=== PATIENT | female | born 1955 | race Caucasian/White ===

== ENCOUNTER 2019-07-05 16:45 | Inpatient (IN) ==
[2019-07-05] MEDS ORDERED: 0.9 % Sodium Chloride 1,000 ML IVC ONE (17:44)
[2019-07-05 18:16] LABS: INR 1.1; Prothrombin Time 12.5 Seconds (9.4-12.1)
[2019-07-05 18:17] LABS: Basophils % 0.3 %; Eosinophils # 0.1 K/mcL (0.0-0.6); Eosinophils % 1.1 %; Hematocrit 36.2 % (35.3-44.9); Hemoglobin 11.6 g/dL (11.5-15.4); Immature Granulocytes % 0.3 % (0-4); Lymphocytes # 1.8 K/mcL (0.6-4.6); Lymphocytes % 24.4 %; Mean Corpuscular Hemoglobin 29.8 pg (28.0-33.3); Mean Corpuscular Volume 93.1 fL (83.0-100.0); Mean Platelet Volume 11.3 fL (9.4-12.4); Monocytes # 0.7 K/mcL (0.0-1.3); Monocytes % 9.8 %; Neutrophils # 4.6 K/mcL (1.6-8.9); Platelet Count 235 K/mcL (140-400); Red Blood Count 3.89 M/mcL (3.82-4.97); Red Cell Distribution Width 13.9 % (11.5-14.5); Segmented Neutrophils % 64.1 %; White Blood Count 7.2 K/mcL (4.3-11.1)
[2019-07-05 18:19] LABS: Activated Partial Thrombo Time 33.9 Seconds (26.0-36.0)
[2019-07-05] MEDS ORDERED: Acetaminophen 325 MG TABLET PO ONE (18:24)
[2019-07-05 18:42] LABS: Alanine Aminotransferase 70 Units/L (7-52); Albumin/Globulin Ratio 1.3 (1.1-2.2); Alkaline Phosphatase 123 Units/L (34-104); Aspartate Amino Transferase 37 Units/L (13-39); BUN/Creatinine Ratio 13 (6-26); Bilirubin,Direct 0.1 mg/dL (0.0-0.2); Bilirubin,Indirect 0.2 mg/dL (0.0-1.0); Bilirubin,Total 0.3 mg/dL (0.3-1.0); Blood Urea Nitrogen 12 mg/dL (8-23); Calcium 9.7 mg/dL (8.6-10.3); Carbon Dioxide 26 mEq/L (23-29); Chloride 102 mEq/L (98-107); Globulin 3.2 g/dL (2.4-3.5); Glucose 100 mg/dL (70-105); Magnesium 2.2 mg/dL (1.6-2.6); Osmolality,Calculated 278 (280-300); Phosphorous 3.1 mg/dL (2.7-4.5); Potassium 4.1 mEq/L (3.5-5.1); Sodium 134 mEq/L (136-145); Total Protein 7.2 g/dL (6.4-8.9); Troponin I < 0.03 ng/mL (< 0.04); eGFR For African Americans > 60 (> 60); eGFR For Non-African Americans > 60 (> 60)
[2019-07-05 19:16] LABS: Bilirubin,Urine Negative (Negative); Blood,Urine Negative (Negative); Clarity,Urine Clear (Clear); Color,Urine Yellow (Yellow); Glucose,Urine (UA) Normal (Normal); Ketones,Urine Negative (Negative); Leukocyte Esterase,Urine Negative (Negative); Nitrite,Urine Negative (Negative); PH,Urine 6.5 pH Units (5.0-8.0); Protein,Urine Negative (Neg-Trace); Specific Gravity,Urine 1.012 (1.010-1.025); Urobilinogen,Urine Normal (Normal)
[2019-07-05] MEDS ORDERED: *HR* OxyCODONE Immed Rel 5 MG TABLET PO STA (19:30)
[2019-07-05] MEDS ORDERED: Naloxone 0.4 MG/ML INJ IVP PRN ×2 (21:54→22:08)
[2019-07-05] MEDS ORDERED: Ondansetron 4 MG/2 ML VIAL IVP PRN (21:54)
[2019-07-05] MEDS ORDERED: Acetaminophen 325 MG TABLET PO PRN (21:56)
[2019-07-05] MEDS: Morphine Sulfate 2 MG/ML SYRINGE IVP PRN (23:00)
[2019-07-05] MEDS: 0.9 % Sodium Chloride 1,000 ML IVC SCH (23:49)
[2019-07-05] MEDS: *HR* Heparin 5,000 UNIT/ML VIAL SQ SCH (23:56)
[2019-07-06] MEDS: Morphine Sulfate 2 MG/ML SYRINGE IVP PRN ×3 (03:06→19:11)
[2019-07-06 04:43] LABS: Basophils % 0.3 %; Eosinophils # 0.1 K/mcL (0.0-0.6); Eosinophils % 0.8 %; Hematocrit 33.6 % (35.3-44.9); Hemoglobin 10.9 g/dL (11.5-15.4); Immature Granulocytes % 0.5 % (0-4); Lymphocytes # 1.1 K/mcL (0.6-4.6); Mean Corpuscular HGB Conc 32.4 g/dL (31.6-35.5); Mean Corpuscular Hemoglobin 30.1 pg (28.0-33.3); Mean Corpuscular Volume 92.8 fL (83.0-100.0); Mean Platelet Volume 10.8 fL (9.4-12.4); Monocytes # 0.8 K/mcL (0.0-1.3); Monocytes % 11.9 %; Neutrophils # 4.5 K/mcL (1.6-8.9); Platelet Count 217 K/mcL (140-400); Red Blood Count 3.62 M/mcL (3.82-4.97); Segmented Neutrophils % 69.5 %; White Blood Count 6.5 K/mcL (4.3-11.1)
[2019-07-06 05:07] LABS: BUN/Creatinine Ratio 16 (6-26); Blood Urea Nitrogen 11 mg/dL (8-23); Calcium 9.2 mg/dL (8.6-10.3); Carbon Dioxide 23 mEq/L (23-29); Chloride 104 mEq/L (98-107); Glucose 108 mg/dL (70-105); Magnesium 1.9 mg/dL (1.6-2.6); Osmolality,Calculated 282 (280-300); Potassium 3.7 mEq/L (3.5-5.1); Sodium 136 mEq/L (136-145); eGFR For African Americans > 60 (> 60); eGFR For Non-African Americans > 60 (> 60)
[2019-07-06] MEDS ORDERED: Vancomycin 500 MG in 0.9 % Sodium Chloride Mini Bag 100 ML IVPB ONE (05:20)
[2019-07-06] MEDS: *HR* Heparin 5,000 UNIT/ML VIAL SQ SCH ×3 (05:44→20:47)
[2019-07-06] MEDS ORDERED: Aminoglycoside Consult 1 EACH MC ONE (08:47)
[2019-07-06] MEDS: Ascorbic Acid 500 MG TABLET PO SCH ×2 (08:52→20:47)
[2019-07-06] MEDS: Aspirin 81 MG TAB.CHEW PO SCH (08:52)
[2019-07-06] MEDS: carvediloL 6.25 MG TABLET PO SCH ×2 (08:52→16:33)
[2019-07-06] MEDS: FLUoxetine 20 MG CAPSULE PO SCH (08:52)
[2019-07-06] MEDS ORDERED: Gadolinium Contrast Agent (WT Based) IV PRN ×2 (09:21→09:54)
[2019-07-06] MEDS: 0.9 % Sodium Chloride 1,000 ML IVC SCH (11:18)
[2019-07-06 12:32] LABS: C-Reactive Protein 153 mg/L (Less than 10)
[2019-07-06] MEDS: Melatonin 3 MG TABLET PO SCH (20:46)
[2019-07-07] MEDS: Morphine Sulfate 2 MG/ML SYRINGE IVP PRN ×2 (03:15→11:04)
[2019-07-07 05:35] LABS: Basophils % 0.5 %; Eosinophils % 0.5 %; Hemoglobin 11.6 g/dL (11.5-15.4); Immature Granulocytes % 0.3 % (0-4); Lymphocytes # 1.6 K/mcL (0.6-4.6); Lymphocytes % 21.6 %; Mean Corpuscular HGB Conc 32.2 g/dL (31.6-35.5); Mean Corpuscular Hemoglobin 30.6 pg (28.0-33.3); Mean Platelet Volume 10.7 fL (9.4-12.4); Monocytes # 0.9 K/mcL (0.0-1.3); Neutrophils # 4.9 K/mcL (1.6-8.9); Platelet Count 243 K/mcL (140-400); Red Blood Count 3.79 M/mcL (3.82-4.97); Red Cell Distribution Width 14.2 % (11.5-14.5); Segmented Neutrophils % 65.1 %; White Blood Count 7.6 K/mcL (4.3-11.1)
[2019-07-07 05:51] LABS: BUN/Creatinine Ratio 17 (6-26); Blood Urea Nitrogen 11 mg/dL (8-23); Calcium 9.4 mg/dL (8.6-10.3); Carbon Dioxide 24 mEq/L (23-29); Chloride 103 mEq/L (98-107); Glucose 111 mg/dL (70-105); Osmolality,Calculated 282 (280-300); Potassium 3.9 mEq/L (3.5-5.1); Sodium 136 mEq/L (136-145); eGFR For African Americans > 60 (> 60); eGFR For Non-African Americans > 60 (> 60)
[2019-07-07] MEDS: *HR* Heparin 5,000 UNIT/ML VIAL SQ SCH ×3 (06:04→20:43)
[2019-07-07] MEDS: Aspirin 81 MG TAB.CHEW PO SCH (07:50)
[2019-07-07] MEDS: carvediloL 6.25 MG TABLET PO SCH ×2 (07:50→16:10)
[2019-07-07] MEDS: FLUoxetine 20 MG CAPSULE PO SCH (07:51)
[2019-07-07] MEDS: Ascorbic Acid 500 MG TABLET PO SCH ×2 (07:51→20:44)
[2019-07-07] MEDS: cefTRIAXone 2,000 MG in Water for inj. (sterile) 20 ML IVP SCH (11:04)
[2019-07-07] MEDS ORDERED: Acetaminophen 325 MG TABLET PO PRN (14:43)
[2019-07-07] MEDS ORDERED: Morphine Sulfate 2 MG/ML SYRINGE IVP PRN (14:43)
[2019-07-07] MEDS ORDERED: *HR* FentaNYL (PF) 100 MCG/2 ML VIAL IVP PRN (20:07)
[2019-07-07] MEDS: Melatonin 3 MG TABLET PO SCH (20:43)
[2019-07-08] MEDS: Ketorolac 30 MG/ML VIAL IVP PRN ×2 (04:18→13:37)
[2019-07-08] MEDS: *HR* HYDROmorphone (PF) 1 MG/ML SYRINGE IVP PRN ×2 (04:18→08:02)
[2019-07-08] MEDS: *HR* Heparin 5,000 UNIT/ML VIAL SQ SCH ×3 (05:29→20:31)
[2019-07-08] MEDS: carvediloL 6.25 MG TABLET PO SCH ×2 (07:55→16:18)
[2019-07-08] MEDS: Ascorbic Acid 500 MG TABLET PO SCH ×2 (07:55→20:30)
[2019-07-08] MEDS: FLUoxetine 20 MG CAPSULE PO SCH (07:55)
[2019-07-08] MEDS: Aspirin 81 MG TAB.CHEW PO SCH (07:55)
[2019-07-08] MEDS: cefTRIAXone 2,000 MG in Water for inj. (sterile) 20 ML IVP SCH (12:05)
[2019-07-08 14:13] LABS: Appearance,Synovial Fluid Clear (Clear-Hazy); Color,Synovial Fluid Colorless (Straw)
[2019-07-08] MEDS: Melatonin 3 MG TABLET PO SCH (20:30)
[2019-07-08] MEDS: *HR* HYDROcodone/Acet 5/325 mg TABLET PO PRN (23:04)
[2019-07-09 03:08] LABS: Hematocrit 33.1 % (35.3-44.9); Hemoglobin 10.5 g/dL (11.5-15.4); Mean Corpuscular HGB Conc 31.7 g/dL (31.6-35.5); Mean Corpuscular Hemoglobin 30.4 pg (28.0-33.3); Mean Corpuscular Volume 95.9 fL (83.0-100.0); Mean Platelet Volume 10.8 fL (9.4-12.4); Platelet Count 310 K/mcL (140-400); Red Blood Count 3.45 M/mcL (3.82-4.97); White Blood Count 7.4 K/mcL (4.3-11.1)
[2019-07-09 03:23] LABS: BUN/Creatinine Ratio 20 (6-26); Blood Urea Nitrogen 13 mg/dL (8-23); Calcium 9.5 mg/dL (8.6-10.3); Carbon Dioxide 28 mEq/L (23-29); Chloride 102 mEq/L (98-107); Glucose 109 mg/dL (70-105); Osmolality,Calculated 285 (280-300); Potassium 3.8 mEq/L (3.5-5.1); Sodium 137 mEq/L (136-145); eGFR For African Americans > 60 (> 60); eGFR For Non-African Americans > 60 (> 60)
[2019-07-09] MEDS: *HR* Heparin 5,000 UNIT/ML VIAL SQ SCH (05:12)
[2019-07-09] MEDS: *HR* HYDROcodone/Acet 5/325 mg TABLET PO PRN (07:20)
[2019-07-09] MEDS: Ketorolac 30 MG/ML VIAL IVP PRN (08:20)
[2019-07-09] MEDS: Aspirin 81 MG TAB.CHEW PO SCH (08:21)
[2019-07-09] MEDS: Ascorbic Acid 500 MG TABLET PO SCH (08:21)
[2019-07-09] MEDS: FLUoxetine 20 MG CAPSULE PO SCH (08:21)
[2019-07-09] MEDS: carvediloL 6.25 MG TABLET PO SCH (08:21)
[2019-07-09] MEDS ORDERED: MOM Conc 10 ML UD.LIQ PO ONE (08:33)
[2019-07-09 10:51] VITALS: BP 105/70
== END 2019-07-09 14:12 | disposition home or self-care (01) | DRG 600 ==
LOC: EMEROOARM 16:45 → 3ANU 16:45 → SUATTDRO 22:08 → 3ANU 22:25
PROVIDERS: ADMIT Student in an Organized Health Care Education/Training Program; ATTEND Internal Medicine
PROC: IRDRAIN (2019-07-07 12:00)

== ENCOUNTER 2022-01-14 06:00 | Observation (INO) ==
[2022-01-14] MEDS ORDERED: CeFAZolin Syr 2,000MG/20 ML 2,000 MG/20 ML SYRINGE IVPB ONE (06:22)
[2022-01-14] MEDS ORDERED: Ringers Solution, Lactated 1,000 ML IVC SCH ×2 (06:30→10:57)
[2022-01-14] MEDS ORDERED: Acetaminophen IV 1,000 MG/100 ML BAG IVPB ONE (06:30)
[2022-01-14] MEDS ORDERED: Albuterol 2.5 MG/3 ML NEBULIZER IH ONE (06:30)
[2022-01-14] MEDS ORDERED: Famotidine 20 MG TABLET PO ONE (06:30)
[2022-01-14] MEDS ORDERED: *HR* Propofol 200 MG/20 ML VIAL IVP ONE (06:46)
[2022-01-14] MEDS ORDERED: Lidocaine -MPF 2% 5 ML VIAL ONE (06:46)
[2022-01-14] MEDS ORDERED: *HR* FentaNYL (PF) 100 MCG/2 ML VIAL ONE (06:46)
[2022-01-14] MEDS ORDERED: *HR* Midazolam HCl 2 MG/2 ML VIAL ONE (06:46)
[2022-01-14] MEDS ORDERED: Ondansetron 4 MG/2 ML VIAL ONE (06:46)
[2022-01-14] MEDS ORDERED: Tranexamic Acid 1,000 MG/10 ML VIAL ONE (06:51)
[2022-01-14] MEDS ORDERED: Ropivacaine/PF 0.5% 30 ML VIAL ONE (06:52)
[2022-01-14] MEDS ORDERED: ROPIVACAINE/PF/NS 0.25% 1 EACH SYRINGE INTRAART ONE (06:52)
[2022-01-14] MEDS ORDERED: *HR* FentaNYL (PF) 100 MCG/2 ML VIAL IVP PRN (06:54)
[2022-01-14] MEDS ORDERED: Ondansetron 4 MG/2 ML VIAL IVP PRN ×2 (06:54→10:57)
[2022-01-14] MEDS ORDERED: *HR* HYDROmorphone PF 0.5 MG/0.5 ML SYRINGE IVP PRN (06:54)
[2022-01-14] MEDS ORDERED: *HR* OxyCODONE Immed Rel 5 MG TABLET PO PRN (06:54)
[2022-01-14] MEDS ORDERED: Vancomycin 1,000 MG VIAL ONE ×2 (07:03→08:54)
[2022-01-14] MEDS ORDERED: TOTAL JOINT MIXTURE (100ML) INTRAART ONE (07:30)
[2022-01-14] MEDS ORDERED: Povidone-Iodine 45 ML, Sodium Chloride IRRigation 1,000 ML IR ONE (07:30)
[2022-01-14] MEDS ORDERED: *HR* HYDROMORPHONE 2 MG/ML VIAL ONE (08:05)
[2022-01-14] MEDS ORDERED: Ketorolac 30 MG/ML VIAL ONE (08:15)
[2022-01-14] MEDS ORDERED: Ketamine HCL *QUVA* 50mg (1mL) SYRINGE ONE (08:15)
[2022-01-14] MEDS ORDERED: *HR* Promethazine 25 MG/ML VIAL IM PRN (10:57)
[2022-01-14] MEDS ORDERED: Sennosides 8.6 MG TABLET PO PRN (10:57)
[2022-01-14] MEDS ORDERED: Naloxone 0.4 MG/ML INJ IVP PRN (10:57)
[2022-01-14] MEDS ORDERED: MOM Conc 10 ML UD.LIQ PO PRN (10:57)
[2022-01-14] MEDS: Ketorolac 30 MG/ML VIAL IVP SCH ×3 (14:26→23:41)
[2022-01-14] MEDS: Ascorbic Acid 500 MG TABLET PO SCH (17:55)
[2022-01-14] MEDS: CeFAZolin 2 GM/120 ML BAG IVPB SCH ×2 (17:55→23:40)
[2022-01-15] MEDS: *HR* OxyCODONE Immed Rel 5 MG TABLET PO PRN ×3 (01:16→16:58)
[2022-01-15] MEDS: Ketorolac 30 MG/ML VIAL IVP SCH ×4 (05:30→23:24)
[2022-01-15 05:31] LABS: Basophils % 0.1 %; Hematocrit 32.9 % (35.3-44.9); Immature Granulocytes % 0.5 % (0-4); Lymphocytes # 1.1 K/mcL (0.6-4.6); Lymphocytes % 8.2 %; Mean Corpuscular HGB Conc 31.3 g/dL (31.6-35.5); Mean Corpuscular Hemoglobin 30.7 pg (28.0-33.3); Mean Corpuscular Volume 97.9 fL (83.0-100.0); Mean Platelet Volume 11.5 fL (9.4-12.4); Monocytes # 1.3 K/mcL (0.0-1.3); Monocytes % 9.9 %; Neutrophils # 10.5 K/mcL (1.6-8.9); Platelet Count 192 K/mcL (140-400); Red Blood Count 3.36 M/mcL (3.82-4.97); Red Cell Distribution Width 13.7 % (11.5-14.5); Segmented Neutrophils % 81.3 %
[2022-01-15 05:47] LABS: Hemoglobin 10.3 g/dL (11.5-15.4); White Blood Count 12.9 K/mcL (4.3-11.1)
[2022-01-15 06:01] LABS: Calcium 9.2 mg/dL (8.6-10.3); Potassium 4.6 mEq/L (3.5-5.1)
[2022-01-15] MEDS: Cholecalciferol (D-3) 1,000 UNIT (25MCG) TABLET PO SCH (08:47)
[2022-01-15] MEDS: Ascorbic Acid 500 MG TABLET PO SCH ×3 (08:47→16:59)
[2022-01-15] MEDS: Magnesium Oxide 400 MG TABLET PO SCH (08:47)
[2022-01-15] MEDS: Zinc Sulfate 220 MG CAPSULE PO SCH (08:48)
[2022-01-15] MEDS: Multivit/Ca/Min/Fe/FA 1 TAB TABLET PO SCH (08:48)
[2022-01-15] MEDS ORDERED: FLUoxetine 20 MG CAPSULE PO SCH (09:00)
[2022-01-15] MEDS ORDERED: BuPROPion SR (12 HR) 150 MG TABLET PO SCH (09:00)
[2022-01-15] MEDS: Aspirin Enteric Coated 81 MG Tablet PO SCH ×2 (09:02→19:41)
[2022-01-16] MEDS: *HR* OxyCODONE Immed Rel 5 MG TABLET PO PRN ×4 (00:23→18:42)
[2022-01-16] MEDS: Ketorolac 30 MG/ML VIAL IVP SCH ×3 (05:30→18:42)
[2022-01-16 07:49] LABS: Basophils % 0.4 %; Eosinophils # 0.1 K/mcL (0.0-0.6); Eosinophils % 0.7 %; Hematocrit 30.3 % (35.3-44.9); Hemoglobin 9.7 g/dL (11.5-15.4); Immature Granulocytes % 0.1 % (0-4); Lymphocytes # 0.9 K/mcL (0.6-4.6); Lymphocytes % 11.8 %; Mean Corpuscular Volume 93.8 fL (83.0-100.0); Mean Platelet Volume 11.3 fL (9.4-12.4); Monocytes # 0.7 K/mcL (0.0-1.3); Monocytes % 9.2 %; Platelet Count 181 K/mcL (140-400); Red Blood Count 3.23 M/mcL (3.82-4.97); Red Cell Distribution Width 13.9 % (11.5-14.5); Segmented Neutrophils % 77.8 %; White Blood Count 7.7 K/mcL (4.3-11.1)
[2022-01-16 08:09] LABS: Calcium 9.3 mg/dL (8.6-10.3); Potassium 4.2 mEq/L (3.5-5.1)
[2022-01-16] MEDS: Aspirin Enteric Coated 81 MG Tablet PO SCH (08:19)
[2022-01-16] MEDS: Multivit/Ca/Min/Fe/FA 1 TAB TABLET PO SCH (08:20)
[2022-01-16] MEDS: Cholecalciferol (D-3) 1,000 UNIT (25MCG) TABLET PO SCH (08:20)
[2022-01-16] MEDS: Ascorbic Acid 500 MG TABLET PO SCH ×2 (08:20)
[2022-01-16] MEDS: Magnesium Oxide 400 MG TABLET PO SCH (08:20)
[2022-01-16] MEDS: Zinc Sulfate 220 MG CAPSULE PO SCH (08:20)
[2022-01-16 17:37] VITALS: BP 108/67; PULSE 87; TEMP 98.1; O2SAT 96
== END 2022-01-16 20:25 | disposition home or self-care (01) ==
LOC: SDCAOSI 06:00 → 4WAOSI 06:00
PROVIDERS: ADMIT Orthopaedic Surgery; ATTEND Orthopaedic Surgery